=== PATIENT | male | born 1965 | race Caucasian/White ===

== ENCOUNTER 2018-11-24 14:32 | Inpatient (IN) | payer MEDICARE, OTHER ==
[2018-11-24] MEDS ORDERED: LORazepam 2 MG/ML INJ IM STA (15:05)
[2018-11-24] MEDS ORDERED: ZIPRASIDONE 20 MG VIAL IM STA (15:05)
[2018-11-24 17:04] LABS: Appearance,Urine Clear (Clear); Bilirubin,Urine Negative (Negative); Blood,Urine Negative (Negative); Color,Urine Light Yellow; Glucose,Urine (UA) Negative (Negative); Ketones,Urine 1+ (Negative); Leukocyte Esterase,Urine Large (Negative); Mucus,Urine Rare /hpf; Nitrite,Urine Negative (Negative); Protein,Urine Negative (Negative); RBC,Urine 2 /hpf (0-5); Specific Gravity,Urine 1.007 (1.001-1.035); Squamous Epithelial Cell,Urine 1 /hpf (0-4); Urobilinogen,Urine <2.0 mg/dL (<2.0); WBC,Urine 30 /hpf (0-5)
[2018-11-24 17:08] LABS: Amphetamine Screen,Urine Not Detected (NotDetected); Barbiturate Screen,Urine Not Detected (NotDetected); Benzodiazepines Screen,Urine Not Detected (NotDetected); Cocaine Screen,Urine Not Detected (NotDetected); Methadone Screen, Urine Not Detected (NotDetected); Opiate Screen,Urine Not Detected (NotDetected); Oxycodone Screen, Urine Not Detected (NotDetected); Phencyclidine Screen,Urine Not Detected (NotDetected); Tricyclic Antidepressant,Urine Not Detected (NotDetected); Urn Cannabinoid Scrn Detected (NotDetected)
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
[2018-11-24] MEDS ORDERED: MAG HYDROX/AL HYDROX/SIMETH 30 ML CUP PO PRN (20:31)
[2018-11-24] MEDS ORDERED: ZIPRASIDONE 20 MG VIAL IM PRN (20:31)
[2018-11-24] MEDS ORDERED: MAGNESIUM HYDROXIDE 2,400 MG/10 ML CUP PO PRN (20:31)
--- NOTE | 2018-11-25 07:12 | P.MDCNMH ---
History of Present Illness H&P Date: 11/26/18 Chief Complaint: Medical management 53-year-old male with history of bipolar disorder. Patient was brought into the hospital due to abnormal behavior family was brought him in because he was walking into neighbors houses and being very talkative with pressured speech and not sleeping for a few days which is typical of her his cris attacks. Patient denies any chest pain trouble breathing coughing fevers chills nausea vomiting abdominal pain or GI bleeding Review of Systems ( Pertinent positives as noted in HPI. All other systems were reviewed and are negative Past Medical History Additional Past Medical History / Comment(s): chronic back pain History of Any Multi-Drug Resistant Organisms: None Reported Past Surgical History: Hernia Repair Past Psychological History: Bipolar Smoking Status: Current every day smoker Past Alcohol Use History: None Reported Past Drug Use History: Marijuana - Past Family History Family Family Medical History: No Reported History Medications and Allergies Allergies Allergy/AdvReac Type Severity Reaction Status Date / Time No Known Allergies Allergy Verified 11/24/18 20:30 Physical Exam Vitals: Vital Signs Temp Pulse Pulse Resp BP BP Pulse Ox 11/25/18 06:00 97.9 F 90 18 142/84 11/24/18 18:32 73 18 138/88 99 11/24/18 16:38 86 18 120/87 98 11/24/18 14:37 97.8 F 95 18 145/96 97 Constitutional: No acute distress, conversant, pleasant Eyes: Anicteric sclerae, moist conjunctiva, no lid-lag Pupils equal round reactive to light ENMT: NC/AT Oropharynx clear, no erythema, exudates Neck: Supple, FROM, no masses, or JVD No carotid bruits No thyromegaly Lungs: Clear to auscultation Clear to percussion Normal respiratory effort, no accessory muscle use Cardiovascular: Heart regular in rate and rhythm, No murmurs, gallops, or rubs No peripheral edema Abdominal: Soft Nontender, no guarding, rebound or rigidity Abdomen moving with respiration Normoactive bowel sounds No hepatomegaly, No splenomegaly No palpable mass No abdominal wall hernia noted Skin: Normal temperature, tone, texture, turgor No induration No subcutaneous nodules No rash, lesions No ulcers Extremities: No digital cyanosis No clubbing Pedal pulses intact and symmetrical Radial pulses intact and symmetrical No calf tenderness Psychiatric: Alert and oriented to person, place and time Flight of ideas and thoughts patient very talkative Poor judgement Neuro Muscles Strength 5/5 in all 4 extremities Sensation to light touch grossly present throughout Cranial nerves II-XII grossly intact No focal sensory deficits Lymphatics: no palpable cervical or supraclavicular , or inguinal lymph nodes Cranial Nerve Examination - Cranial Nerves Cranial Nerve II- Optic: Intact Cranial Nerve III- Oculomotor: Intact Cranial Nerve IV- Trochlear: Intact Cranial Nerve V- Trigeminal: Intact Cranial Nerve - Abducens: Intact Cranial Nerve VII- Facial: Intact Cranial Nerve VIII- Auditory: Intact Cranial Nerve IX- Glossopharyngeal: Intact Cranial Nerve X- Vagus: Intact Cranial Nerve XI- Accessory: Intact Cranial Nerve XII- Hypoglossal: Intact Results CBC & Chem 7: 11/25/18 08:06 11/25/18 08:06 Labs: Abnormal Lab Results - Last 24 Hours (Table) 11/24/18 Range/Units 16:32 Urine Ketones 1+ H (Negative) Ur Leukocyte Esterase Large H (Negative) Urine WBC 30 H (0-5) /hpf Urine Mucus Rare H (None) /hpf U Marijuana (THC) Screen Detected H (NotDetected) Assessment and Plan Assessment: 53-year-old male with history of bipolar disorder admitted due to possible episode of cris patient becoming talkative with abnormal behavior walking the neighbors houses. Medicine consultation for medical management patient currently have no medical concerns Plan: Bipolar disorder with manic episodes Management per psych Tobacco smoking abuse Patient counseled to quit smoking Dictating replacement therapy Patient low risk for DVT patient is ambulatory Thank you for allowing us to participate in the care of this patient. We will follow peripherally. Do not hesitate to contact us with questions. Someone can be reached from the [facility] [place] [facility] hospitalist group at all hours of the day at [phone].
[2018-11-25 08:49] LABS: Basophils % (A) 0 %; Eosinophils # (A) 0.2 k/uL (0-0.7); Eosinophils % (A) 2 %; HCT 48.4 % (39.0-53.0); HGB 15.7 gm/dL (13.0-17.5); Lymphocytes # (A) 1.5 k/uL (1.0-4.8); Lymphocytes % (A) 13 %; MCH 30.5 pg (25.0-35.0); MCHC 32.3 g/dL (31.0-37.0); MCV 94.4 fL (80.0-100.0); Mean Platelet Volume 6.6; Monocytes # (A) 0.7 k/uL (0-1.0); Monocytes % (A) 6 %; Neutrophils # (A) 9.6 k/uL (1.3-7.7); Neutrophils % (A) 79 %; Platelet Count 395 k/uL (150-450); RBC 5.13 m/uL (4.30-5.90); RDW 13.2 % (11.5-15.5); WBC 12.2 k/uL (3.8-10.6)
[2018-11-25 08:57] LABS: ALT 38 U/L (21-72); AST 54 U/L (17-59); Albumin 4.8 g/dL (3.5-5.0); Alkaline Phosphatase 67 U/L (38-126); Anion Gap 8 mmol/L; Blood Urea Nitrogen 15 mg/dL (9-20); Calcium 10.3 mg/dL (8.4-10.2); Carbon Dioxide 26 mmol/L (22-30); Chloride 106 mmol/L (98-107); Cholesterol 201 mg/dL (<200); Glucose 90 mg/dL (74-99); HDL Cholesterol 71 mg/dL (40-60); LDL Cholesterol,Calculated 120 mg/dL (0-99); Potassium 4.4 mmol/L (3.5-5.1); Sodium 140 mmol/L (137-145); Total Bilirubin 1.5 mg/dL (0.2-1.3); Total Protein 7.3 g/dL (6.3-8.2); Triglycerides 50 mg/dL (<150)
[2018-11-25] MEDS: NICOTINE 7MG/24HR PATCH TRANSDERM SCH (10:20)
--- NOTE | 2018-11-25 12:33 | P.HP ---
Psychiatric H&P - . H&P Date: 11/25/18 History & Physical: Allergies Allergy/AdvReac Type Severity Reaction Status Date / Time No Known Allergies Allergy Verified 11/24/18 20:30 Vital Signs Temp 97.9 F 11/25/18 06:00 Pulse 90 11/25/18 06:00 Resp 18 11/25/18 06:00 BP 142/84 11/25/18 06:00 Pulse Ox 99 11/24/18 18:32 Intake & Output 11/24/18 11/25/18 11/25/18 18:59 06:59 18:59 Weight 58.967 kg Laboratory Last Values WBC 12.2 k/uL (3.8-10.6) H 11/25/18 08:06 RBC 5.13 m/uL (4.30-5.90) 11/25/18 08:06 Hgb 15.7 gm/dL (13.0-17.5) 11/25/18 08:06 Hct 48.4 % (39.0-53.0) 11/25/18 08:06 MCV 94.4 fL (80.0-100.0) 11/25/18 08:06 MCH 30.5 pg (25.0-35.0) 11/25/18 08:06 MCHC 32.3 g/dL (31.0-37.0) 11/25/18 08:06 RDW 13.2 % (11.5-15.5) 11/25/18 08:06 Plt Count 395 k/uL (150-450) 11/25/18 08:06 Neutrophils % 79 % 11/25/18 08:06 Lymphocytes % 13 % 11/25/18 08:06 Monocytes % 6 % 11/25/18 08:06 Eosinophils % 2 % 11/25/18 08:06 Basophils % 0 % 11/25/18 08:06 Neutrophils # 9.6 k/uL (1.3-7.7) H 11/25/18 08:06 Lymphocytes # 1.5 k/uL (1.0-4.8) 11/25/18 08:06 Monocytes # 0.7 k/uL (0-1.0) 11/25/18 08:06 Eosinophils # 0.2 k/uL (0-0.7) 11/25/18 08:06 Basophils # 0.0 k/uL (0-0.2) 11/25/18 08:06 Sodium 140 mmol/L (137-145) 11/25/18 08:06 Potassium 4.4 mmol/L (3.5-5.1) 11/25/18 08:06 Chloride 106 mmol/L (98-107) 11/25/18 08:06 Carbon Dioxide 26 mmol/L (22-30) 11/25/18 08:06 Anion Gap 8 mmol/L 11/25/18 08:06 BUN 15 mg/dL (9-20) 11/25/18 08:06 Creatinine 0.72 mg/dL (0.66-1.25) 11/25/18 08:06 Est GFR (CKD-EPI)AfAm >90 (>60 ml/min/1.73 sqM) 11/25/18 08:06 Est GFR (CKD-EPI)NonAf >90 (>60 ml/min/1.73 sqM) 11/25/18 08:06 Glucose 90 mg/dL (74-99) 11/25/18 08:06 Calcium 10.3 mg/dL (8.4-10.2) H 11/25/18 08:06 Total Bilirubin 1.5 mg/dL (0.2-1.3) H 11/25/18 08:06 AST 54 U/L (17-59) 11/25/18 08:06 ALT 38 U/L (21-72) 11/25/18 08:06 Alkaline Phosphatase 67 U/L (38-126) 11/25/18 08:06 Total Protein 7.3 g/dL (6.3-8.2) 11/25/18 08:06 Albumin 4.8 g/dL (3.5-5.0) 11/25/18 08:06 Triglycerides 50 mg/dL (<150) 11/25/18 08:06 Cholesterol 201 mg/dL (<200) H 11/25/18 08:06 LDL Cholesterol, Calc 120 mg/dL (0-99) H 11/25/18 08:06 HDL Cholesterol 71 mg/dL (40-60) H 11/25/18 08:06 TSH 0.771 mIU/L (0.465-4.680) 11/25/18 08:06 Urine Color Light Yellow 11/24/18 16:32 Urine Appearance Clear (Clear) 11/24/18 16:32 Urine pH 6.0 (5.0-8.0) 11/24/18 16:32 Ur Specific [place] 1.007 (1.001-1.035) 11/24/18 16:32 Urine Protein Negative (Negative) 11/24/18 16:32 Urine Glucose (UA) Negative (Negative) 11/24/18 16:32 Urine Ketones 1+ (Negative) H 11/24/18 16:32 Urine Blood Negative (Negative) 11/24/18 16:32 Urine Nitrite Negative (Negative) 11/24/18 16:32 Urine Bilirubin Negative (Negative) 11/24/18 16:32 Urine Urobilinogen <2.0 mg/dL (<2.0) 11/24/18 16:32 Ur Leukocyte Esterase Large (Negative) H 11/24/18 16:32 Urine RBC 2 /hpf (0-5) 11/24/18 16:32 Urine WBC 30 /hpf (0-5) H 11/24/18 16:32 Ur Squamous Epith Cells 1 /hpf (0-4) 11/24/18 16:32 Urine Mucus Rare /hpf (None) H 11/24/18 16:32 Urine Opiates Screen Not Detected (NotDetected) 11/24/18 16:32 Ur Oxycodone Screen Not Detected (NotDetected) 11/24/18 16:32 Urine Methadone Screen Not Detected (NotDetected) 11/24/18 16:32 Ur Propoxyphene Screen Not Detected (NotDetected) 11/24/18 16:32 Ur Barbiturates Screen Not Detected (NotDetected) 11/24/18 16:32 U Tricyclic Antidepress Not Detected (NotDetected) 11/24/18 16:32 Ur Phencyclidine Scrn Not Detected (NotDetected) 11/24/18 16:32 Ur Amphetamines Screen Not Detected (NotDetected) 11/24/18 16:32 U Methamphetamines Scrn Not Detected (NotDetected) 11/24/18 16:32 U Benzodiazepines Scrn Not Detected (NotDetected) 11/24/18 16:32 Urine Cocaine Screen Not Detected (NotDetected) 11/24/18 16:32 U Marijuana (THC) Screen Detected (NotDetected) H 11/24/18 16:32 11/25/18 09:51 Abnormal Lab Results - Last 24 Hours (Table) 11/24/18 Range/Units 16:32 Urine Ketones 1+ H (Negative) Ur Leukocyte Esterase Large H (Negative) Urine WBC 30 H (0-5) /hpf Urine Mucus Rare H (None) /hpf U Marijuana (THC) Screen Detected H (NotDetected) Assessment and Plan Assessment: 53-year-old male presenting today is brought in by family for rapid speech, lack of sleep, cris. Family states patient has a history of bipolar. They state that he has been up for the past 4 days he has pressured speech and has been speaking very rapidly. They state that they do not feel he is safe and could be harmful to self as he is walking into others homes, attempting to find his grandsons. Family is concerned as symptoms have been worsening and patient has become aggressive. They petitioned patient for psychiatric evaluation. Upon arrival pt has coherent speech, it is NOT word salad but is pressured and rapid. He has blood shot eyes, denies drug use. Pt denies current suicidal thoughts, but states he has thought of them fleeting, no plan. Denies homicidal ideation. Patient denies any recent fever, chills, shortness of breath, chest pain, back pain, abdominal pain, nausea or vomiting, numbness or tingling, dysuria or hematuria, constipation or diarrhea, headaches or visual changes, or any other complaints. Pt was brought in by his family on a petition. Pt has a hx of being bipolar. He has been noncompliant with his medicaions and is currently manic. He has not slept in days and is walking into strangers houses asking where his grandchildren are. Pt is currently resting comfortably in his er room. Family is concerned that he is a harm to self or others. Pt tried to elope. He was agitated on arrival but currently calm and cooperative Past Medical History Additional Past Medical History / Comment(s): chronic back pain History of Any Multi-Drug Resistant Organisms: None Reported Past Surgical History: Hernia Repair Past Psychological History: Bipolar Smoking Status: Current every day smoker Past Alcohol Use History: None Reported Past Drug Use History: Marijuana Musculoskeletal Examination - Abnormal/Involuntary Movements: [none Strength: [greater than antigravity (greater than/equal to 3/5) in all extremities] Muscle Tone: [no impairment Gait: [grossly normal Station: [grossly normal Mental Status Examination - General Appearance: [well groomed, casual, bizarre, appears stated age Speech/Language: [spontaneous, rapid, expressive, loud] Attitude/Behavior: [cooperative, irritable, ] Mood: [euthymic, euphoric, elated, Affect: [full range, lively, labile Orientation: [time, person, place situation] Thought Content: [wnl Risk Factors: [denies suicidal (ideations, plan), and/or Homicidal (ideations, plan), other] Perception: [wnl, denies hallucinations (auditory, visual, tactile), other] Thought Processes: [goal-oriented Concentration/Attention Span: [wnl] [Per observation and interview with the patient] Recent Memory: [wnl 3 out of 3 in 3 minutes] Remote Memory: [wnl] [past events, as related history] Intelligence: [ average] [based on history, based on vocabulary, syntax, grammar, and content] Judgement: [good] [per patient's behavior/history of present illness] Insight: [good] [understanding severity of illness/history of present illness] Admitting Diagnosis: [History of bipolar] Patient Strengths - Steady employment/financial stability: [x] Housing stability: [x] Able to vocalize needs: [x] Values and traditions: [x] Motivation, determination, readiness for change: [x] Patient Limitations: [medication Initial Plan of Care: ['s minute on a formal voluntary human though his sister petitioned him he is not a harm to himself or others he just has rapid speech. He is going to be evaluated by medicine, psychiatry, nursing staff, social work and occupational therapy for thorough biopsychosocial evaluation and disposition with the discharge plan. Other than rapid speech I do not see a need at this time to medicate. I will meet with treatment team tomorrow and will check with social work today the significant range for a family meeting tomorrow.] Estimated Length of Stay: [5 days] Initial Discharge Plan: [[place], [facility] Prognosis: [good] Justification for Inpatient Hospitalization - [Emotional or behavioral conditions and complications requiring 24 hour medical and nursing care.] [Need for special drug therapy, or other therapeutic program requiring continuous hospitalization.] [Failure of social or occupational functioning.] (1) Acute psychosis Current Visit: Yes Status: Acute Priority: Medium Code(s): F23 - BRIEF PSYCHOTIC DISORDER SNOMED Code(s): 79364514 (2) Bipolar disorder Current Visit: Yes Status: Acute Priority: Medium Code(s): F31.9 - BIPOLAR DISORDER, UNSPECIFIED SNOMED Code(s): 87169749 Time with Patient: Less than 30
[2018-11-25] MEDS: ZIPRASIDONE 20 MG VIAL IM PRN (13:11)
[2018-11-25 19:40] LABS: Hemoglobin A1C 5.4 % (4.0-6.0)
[2018-11-25] MEDS: ACETAMINOPHEN TAB 325 MG TAB PO PRN (20:53)
[2018-11-25] MEDS: LORazepam 1 MG TAB PO PRN (22:01)
[2018-11-26] MEDS: ACETAMINOPHEN TAB 325 MG TAB PO PRN ×3 (04:56→20:08)
[2018-11-26] MEDS: ZIPRASIDONE 20 MG VIAL IM PRN (06:41)
--- NOTE | 2018-11-26 07:48 | XR ---
Left shoulder HISTORY: Trauma and pain 2 views of the left shoulder Bone mineralization, joint spaces and alignment are maintained. Left lung apex as visualized is beatriz l. IMPRESSION: No fracture or dislocation.
[2018-11-26] MEDS: NICOTINE 7MG/24HR PATCH TRANSDERM SCH (10:15)
--- NOTE | 2018-11-26 14:39 | P.PN ---
Subjective Progress Note Date: 11/26/18 Principal diagnosis: Bipolar mixed 11/26/2018: Chart reviewed and discussed in team this morning discussed with nursing staff and social work. Attempted to call his sister but no answer. Patient apologized for yesterday was be here and appears to be more appropriate. Awaiting deferral hearing before treatment since he still aggravated at times. Objective - Vital Signs Vital signs: Vital Signs Temp 97.6 F 11/26/18 04:40 Pulse 84 11/26/18 04:40 Resp 18 11/26/18 04:40 BP 121/83 11/26/18 04:40 Pulse Ox 99 11/24/18 18:32 - Labs CBC & Chem 7: 11/25/18 08:06 11/25/18 08:06 Assessment and Plan Assessment: 53-year-old male presenting today is brought in by family for rapid speech, lack of sleep, cris. Family states patient has a history of bipolar. They state that he has been up for the past 4 days he has pressured speech and has been speaking very rapidly. They state that they do not feel he is safe and could be harmful to self as he is walking into others homes, attempting to find his grandsons. Family is concerned as symptoms have been worsening and patient has become aggressive. They petitioned patient for psychiatric evaluation. Upon arrival pt has coherent speech, it is NOT word salad but is pressured and rapid. He has blood shot eyes, denies drug use. Pt denies current suicidal thoughts, but states he has thought of them fleeting, no plan. Denies homicidal ideation. Patient denies any recent fever, chills, shortness of breath, chest pain, back pain, abdominal pain, nausea or vomiting, numbness or tingling, dysuria or hematuria, constipation or diarrhea, headaches or visual changes, or any other complaints. Pt was brought in by his family on a petition. Pt has a hx of being bipolar. He has been noncompliant with his medicaions and is currently manic. He has not slept in days and is walking into strangers houses asking where his grandchildren are. Pt is currently resting comfortably in his er room. Family is concerned that he is a harm to self or others. Pt tried to elope. He was agitated on arrival but currently calm and cooperative Past Medical History Additional Past Medical History / Comment(s): chronic back pain History of Any Multi-Drug Resistant Organisms: None Reported Past Surgical History: Hernia Repair Past Psychological History: Bipolar Smoking Status: Current every day smoker Past Alcohol Use History: None Reported Past Drug Use History: Marijuana Musculoskeletal Examination - Abnormal/Involuntary Movements: [none Strength: [greater than antigravity (greater than/equal to 3/5) in all extremities] Muscle Tone: [no impairment Gait: [grossly normal Station: [grossly normal Mental Status Examination - General Appearance: [well groomed, casual, bizarre, appears stated age Speech/Language: [spontaneous, rapid, expressive, loud] Attitude/Behavior: [cooperative, irritable, ] Mood: [euthymic, euphoric, elated, Affect: [full range, lively, labile Orientation: [time, person, place situation] Thought Content: [wnl Risk Factors: [denies suicidal (ideations, plan), and/or Homicidal (ideations, plan), other] Perception: [wnl, denies hallucinations (auditory, visual, tactile), other] Thought Processes: [goal-oriented Concentration/Attention Span: [wnl] [Per observation and interview with the patient] Recent Memory: [wnl 3 out of 3 in 3 minutes] Remote Memory: [wnl] [past events, as related history] Intelligence: [ average] [based on history, based on vocabulary, syntax, gramm ar, and content] Judgement: [good] [per patient's behavior/history of present illness] Insight: [good] [understanding severity of illness/history of present illness] Admitting Diagnosis: [History of bipolar] Patient Strengths - Steady employment/financial stability: [x] Housing stability: [x] Able to vocalize needs: [x] Values and traditions: [x] Motivation, determination, readiness for change: [x] Patient Limitations: [medication Initial Plan of Care: ['s minute on a formal voluntary human though his sister petitioned him he is not a harm to himself or others he just has rapid speech. He is going to be evaluated by medicine, psychiatry, nursing staff, social work and occupational therapy for thorough biopsychosocial evaluation and disposition with the discharge plan. Other than rapid speech I do not see a need at this time to medicate. I will meet with treatment team tomorrow and will check with social work today the significant range for a family meeting tomorrow. 11/26/2018: Patient has had several outbursts requiring Geodon 20 mg injectable for outburst of anger. He remains on 15 minute checks. He has little insight into why he needs care. We'll await court deferral hearing before discussing further treatment with him since he is non-resistant to care.] (1) Acute psychosis Current Visit: Yes Status: Acute Priority: Medium Code(s): F23 - BRIEF PSYCHOTIC DISORDER SNOMED Code(s): 89513113 (2) Bipolar disorder Current Visit: Yes Status: Acute Priority: Medium Code(s): F31.9 - BIPOLAR DISORDER, UNSPECIFIED SNOMED Code(s): 18974830 Time with Patient: Less than 30
[2018-11-26] MEDS ORDERED: PALIPERIDONE 3 MG TAB.ER.24 PO SCH (21:00)
[2018-11-26] MEDS: LORazepam 1 MG TAB PO PRN (21:05)
[2018-11-26] MEDS: DIVALPROEX SPRINKLE 125 MG CAP.SPRINK PO SCH (21:05)
[2018-11-26] MEDS ORDERED: NAPROXEN 250 MG TAB PO STA (22:41)
[2018-11-27] MEDS ORDERED: ACETAMINOPHEN TAB 325 MG TAB ONE (04:42)
[2018-11-27] MEDS ORDERED: NAPROXEN 250 MG TAB PO ONE (05:00)
[2018-11-27] MEDS: DIVALPROEX SPRINKLE 125 MG CAP.SPRINK PO SCH (08:41)
[2018-11-27] MEDS: NICOTINE 7MG/24HR PATCH TRANSDERM SCH ×2 (08:42→16:12)
--- NOTE | 2018-11-27 11:19 | P.PN ---
Subjective Progress Note Date: 11/27/18 Principal diagnosis: Bipolar mixed 11/26/2018: Chart reviewed and discussed in team this morning discussed with nursing staff and social work. Attempted to call his sister but no answer. Patient apologized for yesterday was be here and appears to be more appropriate. Awaiting deferral hearing before treatment since he still aggravated at times. 11/27/2018: Chart reviewed and discussed in team this morning regarding deferral and discharge. Attempted to call his sister yesterday but no answer. Patient apologized in this morning for his past behavior and discussed his behavior and discharge plans if he continues to be appropriate and well reevaluate in the morning. He will have his probate Court deferral today and explained in detail that he'll have to continue his medications and do outpatient therapy. Objective - Vital Signs Vital signs: Vital Signs Temp 97.6 F 11/27/18 03:25 Pulse 85 11/27/18 03:25 Resp 15 11/27/18 03:25 BP 162/88 11/27/18 03:25 Pulse Ox 99 11/24/18 18:32 - Labs CBC & Chem 7: 11/25/18 08:06 11/25/18 08:06 Assessment and Plan Assessment: 53-year-old male presenting today is brought in by family for rapid speech, lack of sleep, cris. Family states patient has a history of bipolar. They state that he has been up for the past 4 days he has pressured speech and has been speaking very rapidly. They state that they do not feel he is safe and could be harmful to self as he is walking into others homes, attempting to find his grandsons. Family is concerned as symptoms have been worsening and patient has become aggressive. They petitioned patient for psychiatric evaluation. Upon arrival pt has coherent speech, it is NOT word salad but is pressured and rapid. He has blood shot eyes, denies drug use. Pt denies current suicidal thoughts, but states he has thought of them fleeting, no plan. Denies homicidal ideation. Patient denies any recent fever, chills, shortness of breath, chest pain, back pain, abdominal pain, nausea or vomiting, numbness or tingling, dysuria or hematuria, constipation or diarrhea, headaches or visual changes, or any other complaints. Pt was brought in by his family on a petition. Pt has a hx of being bipolar. He has been noncompliant with his medicaions and is currently manic. He has not slept in days and is walking into strangers houses asking where his grandchildren are. Pt is currently resting comfortably in his er room. Family is concerned that he is a harm to self or others. Pt tried to elope. He was agitated on arrival but currently calm and cooperative Past Medical History Additional Past Medical History / Comment(s): chronic back pain History of Any Multi-Drug Resistant Organisms: None Reported Past Surgical History: Hernia Repair Past Psychological History: Bipolar Smoking Status: Current every day smoker Past Alcohol Use History: None Reported Past Drug Use History: Marijuana Musculoskeletal Examination - Abnormal/Involuntary Movements: [none Strength: [greater than antigravity (greater than/equal to 3/5) in all extremities] Muscle Tone: [no impairment Gait: [grossly normal Station: [grossly normal Mental Status Examination - General Appearance: [well groomed, casual, bizarre, appears stated age Speech/Language: [spontaneous, rapid, expressive, loud] Attitude/Behavior: [cooperative, irritable, ] Mood: [euthymic, euphoric, elated, Affect: [full range, lively, labile Orientation: [time, person, place situation] Thought Content: [wnl Risk Factors: [denies suicidal (ideations, plan), and/or Homicidal (ideations, plan), other] Perception: [wnl, denies hallucinations (auditory, visual, tactile), other] Thought Processes: [goal-oriented Concentration/Attention Span: [wnl] [Per observation and interview with the patient] Recent Memory: [wnl 3 out of 3 in 3 minutes] Remote Memory: [wnl] [past events, as related history] Intelligence: [ average] [based on history, based on vocabulary, syntax, grammar, and content] Judgement: [good] [per patient's behavior/history of present illness] Insight: [good] [understanding severity of illness/history of present illness] Admitting Diagnosis: [History of bipolar] Patient Strengths - Steady employment/financial stability: [x] Housing stability: [x] Able to vocalize needs: [x] Values and traditions: [x] Motivation, determination, readiness for change: [x] Patient Limitations: [medication Initial Plan of Care: ['s minute on a formal voluntary human though his sister petitioned him he is not a harm to himself or others he just has rapid speech. He is going to be evaluated by medicine, psychiatry, nursing staff, social work and occupational therapy for thorough biopsychosocial evaluation and disposition with the discharge plan. Other than rapid speech I do not see a need at this time to medicate. I will meet with treatment team tomorrow and will check with social work today the significant range for a family meeting tomorrow. 11/26/2018: Patient has had several outbursts requiring Geodon 20 mg injectable for outburst of anger. He remains on 15 minute checks. He has little insight into why he needs care. We'll await court deferral hearing before discussing fu rther treatment with him since he is non-resistant to care. 11/27/2018: No noticeable outburst today and has been taking his Invega and Depakote as indicated. He remains on 15 minute checks. He has little insight again into why he needs psychiatric care. To this play writer states he is willing to take medications and has been reported and other group situations that he's not going to take this poison and he is going to fall court hearing. Today he stated that his then attended the medications and sounded defer also get out of the hospital. His current medications include Invega 6 mg and Depakote 500 mg extended release both given at bedtime. We'll follow observed for further evaluation and need for further medication.] (1) Acute psychosis Current Visit: Yes Status: Acute Priority: Medium Code(s): F23 - BRIEF PSYCHOTIC DISORDER SNOMED Code(s): 48625543 (2) Bipolar disorder Current Visit: Yes Status: Acute Priority: Medium Code(s): F31.9 - BIPOLAR DISORDER, UNSPECIFIED SNOMED Code(s): 16655725 Time with Patient: Less than 30
[2018-11-27] MEDS: LORazepam 1 MG TAB PO PRN ×2 (11:40→21:22)
[2018-11-27] MEDS ORDERED: DIVALPROEX ER 500 MG TAB.ER.24H PO SCH (21:00)
[2018-11-27] MEDS ORDERED: PALIPERIDONE 6 MG TAB.ER.24 PO SCH (21:00)
[2018-11-28] MEDS: LORazepam 1 MG TAB PO PRN (04:49)
[2018-11-28] MEDS: NICOTINE 7MG/24HR PATCH TRANSDERM SCH (08:19)
[2018-11-28] MEDS: ZIPRASIDONE 20 MG VIAL IM PRN (11:38)
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
[2018-11-28] MEDS: ACETAMINOPHEN TAB 325 MG TAB PO PRN (17:36)
[2018-11-28] MEDS: PALIPERIDONE 3 MG TAB.ER.24 PO SCH (20:52)
[2018-11-28] MEDS ORDERED: DIVALPROEX ER 250 MG TAB.ER.24H PO SCH (21:00)
[2018-11-29] MEDS: LORazepam 1 MG TAB PO PRN (00:58)
[2018-11-29 02:40] VITALS: RESP 16
[2018-11-29] MEDS: ACETAMINOPHEN TAB 325 MG TAB PO PRN ×4 (05:52→20:54)
[2018-11-29] MEDS: NICOTINE 7MG/24HR PATCH TRANSDERM SCH (09:38)
[2018-11-29] MEDS ORDERED: PALIPERIDONE IM 234 MG/1.5 ML SYG IM STA (11:13)
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
[2018-11-29] MEDS: DIVALPROEX ER 500 MG TAB.ER.24H PO SCH (20:52)
[2018-11-29] MEDS: PALIPERIDONE 3 MG TAB.ER.24 PO SCH (20:52)
--- NOTE | 2018-11-29 22:34 | XR ---
EXAM: XR Left Foot Complete, 3 or More Views CLINICAL HISTORY: pain overlying the 3rd metatarsal TECHNIQUE: Frontal, lateral and oblique views of the left foot. COMPARISON: No relevant prior studies available. FINDINGS: Bones/joints: No acute fracture or malalignment. Soft tissues: Unremarkable. No radiopaque foreign body. IMPRESSION: No acute osseous abnormality.
[2018-11-30] MEDS: ACETAMINOPHEN TAB 325 MG TAB PO PRN ×6 (00:57→23:27)
[2018-11-30] MEDS: NICOTINE 7MG/24HR PATCH TRANSDERM SCH (09:17)
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
[2018-11-30] MEDS: PALIPERIDONE 3 MG TAB.ER.24 PO SCH (20:17)
[2018-11-30] MEDS: DIVALPROEX ER 500 MG TAB.ER.24H PO SCH (20:17)
[2018-11-30] MEDS: LORazepam 1 MG TAB PO PRN (23:26)
[2018-12-01] MEDS: ACETAMINOPHEN TAB 325 MG TAB PO PRN ×4 (04:03→21:29)
[2018-12-01] MEDS: NICOTINE 7MG/24HR PATCH TRANSDERM SCH (08:32)
--- NOTE | 2018-12-01 09:09 | P.PN ---
Progress Note - Text Interval history: The patient is found in the hallway he follows me to an interview room. He reports his mood is good. He feels that he is stabilizing. He is looking forward to his support meeting involving his son this morning. He reports some difficulty sleeping last night but states again it was due to disturbance is caused by other patients. He states he did sleep during the day and estimates he slept approximately 6-7 hours overall. Appetite stable. He endorses no racing thoughts. Mental status exam: The patient's a thin male appearing his stated age. He is dressed in his own clothing hygiene and grooming are adequate. Eye contact is appropriate. He has a bright smiling affect. Speech is fluent spontaneous nonpressured. He demonstrates no objective evidence of hypomania or cris during our interaction. He reports no suicidal or homicidal ideation intent or plan. He is reporting no auditory or visual hallucinations or any specific delusions. He is demonstrating no objective evidence of psychosis during our interaction. Insight and judgment are improving. He is oriented to person place and date. He demonstrates no verbal or physical aggressiveness. He demonstrates no involuntary repetitive movements. Plan: The patient will continue on his current psychotropic medications. We will await the outcome of the support meeting. He appears to be clinically stabilizing. We will continue to monitor for safety.
[2018-12-01] MEDS: DIVALPROEX ER 500 MG TAB.ER.24H PO SCH (20:11)
[2018-12-01] MEDS: PALIPERIDONE 3 MG TAB.ER.24 PO SCH (20:12)
[2018-12-01] MEDS: LORazepam 1 MG TAB PO PRN (21:30)
[2018-12-02] MEDS: ACETAMINOPHEN TAB 325 MG TAB PO PRN (03:55)
[2018-12-02 04:26] VITALS: BP 144/85; PULSE 91; TEMP 97.8
[2018-12-02] MEDS: NICOTINE 7MG/24HR PATCH TRANSDERM SCH (08:18)
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
== END 2018-12-02 11:45 | disposition home or self-care (01) | DRG 885 ==
LOC: EC 14:32 → 3MHU 20:25
PROVIDERS: ADMIT Psychiatry & Neurology Psychiatry; ATTEND Psychiatry & Neurology Psychiatry
DX: F31.2 Bipolar disorder, current episode manic severe with psychotic features (principal); Z71.6 Tobacco abuse counseling; F17.210 Nicotine dependence, cigarettes, uncomplicated; Z72.820 Sleep deprivation; Z78.1 Physical restraint status; Z79.899 Other long term (current) drug therapy; T43.96XA Underdosing of unspecified psychotropic drug, initial encounter; Z91.128 Patient's intentional underdosing of medication regimen for other reason; M54.9 Dorsalgia, unspecified; G89.29 Other chronic pain
CPT/HCPCS: 80053; 80061; 80306; 81001; 83036; 84443; 85025; 96372; 99285

== ENCOUNTER 2019-11-10 10:24 | Inpatient (IN) | payer MEDICARE, OTHER ==
[2019-11-10] MEDS ORDERED: HYDROmorphone 0.5 MG/0.5 ML SYRINGE IM STA (10:36)
[2019-11-10] MEDS ORDERED: DIPH,PERTUS(ACELL)TETVAC-LF 0.5 ML VIAL IM ONE (10:36)
[2019-11-10 10:48] LABS: Basophils # (A) 0.1 k/uL (0-0.2); Basophils % (A) 0 %; Eosinophils # (A) 0.3 k/uL (0-0.7); Eosinophils % (A) 2 %; HCT 49.4 % (39.0-53.0); HGB 16.8 gm/dL (13.0-17.5); Lymphocytes # (A) 1.1 k/uL (1.0-4.8); Lymphocytes % (A) 6 %; MCH 31.9 pg (25.0-35.0); MCV 93.8 fL (80.0-100.0); Mean Platelet Volume 6.7; Monocytes # (A) 0.7 k/uL (0-1.0); Monocytes % (A) 3 %; Neutrophils # (A) 17.8 k/uL (1.3-7.7); Neutrophils % (A) 89 %; Platelet Count 368 k/uL (150-450); RBC 5.26 m/uL (4.30-5.90); RDW 12.7 % (11.5-15.5); WBC 20.1 k/uL (3.8-10.6)
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
[2019-11-10 10:56] LABS: INR 0.9 (<1.2); Partial Thromboplastin Time 22.3 sec (22.0-30.0); Prothrombin Time 9.7 sec (9.0-12.0)
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
[2019-11-10 10:58] LABS: ALT 28 U/L (4-49); AST 32 U/L (17-59); African American GFR (CKD) >90 (>60 ml/min/1.73 sqM); Albumin 4.8 g/dL (3.5-5.0); Alcohol <10 mg/dL; Alkaline Phosphatase 62 U/L (38-126); Amylase 57 U/L (30-110); Anion Gap 7 mmol/L; Blood Urea Nitrogen 28 mg/dL (9-20); Calcium 9.6 mg/dL (8.4-10.2); Carbon Dioxide 30 mmol/L (22-30); Chloride 99 mmol/L (98-107); Glucose 120 mg/dL (74-99); Non-African American GFR(CKD) >90 (>60 ml/min/1.73 sqM); Potassium 4.2 mmol/L (3.5-5.1); Sodium 136 mmol/L (137-145); Total Protein 7.7 g/dL (6.3-8.2)
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
[2019-11-10 11:05] LABS: Creatine Kinase 161 U/L (55-170)
[2019-11-10 11:18] LABS: Creatine Kinase MB 2.2 ng/mL (0.0-2.4); Troponin I <0.012 ng/mL (0.000-0.034)
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
[2019-11-10 12:15] LABS: Appearance,Urine Clear (Clear); Bilirubin,Urine Negative (Negative); Blood,Urine Negative (Negative); Color,Urine Yellow; Glucose,Urine (UA) 2+ (Negative); Ketones,Urine Negative (Negative); Leukocyte Esterase,Urine Negative (Negative); Nitrite,Urine Negative (Negative); PH, Urine 5.5 (5.0-8.0); Protein,Urine Trace (Negative); Urobilinogen,Urine <2.0 mg/dL (<2.0)
[2019-11-10] MEDS ORDERED: IBUPROFEN 400 MG TAB PO PRN (12:31)
[2019-11-10] MEDS ORDERED: ACETAMINOPHEN TAB 325 MG TAB PO PRN (12:31)
[2019-11-10] MEDS ORDERED: NALOXONE 0.4 MG/ML 1 ML VIAL IV PRN (12:31)
[2019-11-10 12:37] LABS: Amphetamine Screen,Urine Not Detected (NotDetected); Barbiturate Screen,Urine Not Detected (NotDetected); Benzodiazepines Screen,Urine Not Detected (NotDetected); Cocaine Screen,Urine Not Detected (NotDetected); Methadone Screen, Urine Not Detected (NotDetected); Opiate Screen,Urine Not Detected (NotDetected); Oxycodone Screen, Urine Not Detected (NotDetected); Phencyclidine Screen,Urine Not Detected (NotDetected); Tricyclic Antidepressant,Urine Detected (NotDetected); Urn Cannabinoid Scrn Not Detected (NotDetected)
[2019-11-10 12:46] LABS: Specific Gravity,Urine 1.049 (1.001-1.035)
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
[2019-11-10] MEDS: HYDROmorphone 0.5 MG/0.5 ML SYRINGE IVP PRN ×2 (15:09→20:14)
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
[2019-11-10] MEDS: ENOXAPARIN 40 MG/0.4 ML SYRINGE SQ SCH (23:12)
[2019-11-10] MEDS: NICOTINE 14MG/24HR PATCH TRANSDERM SCH (23:12)
[2019-11-11] MEDS: HYDROmorphone 0.5 MG/0.5 ML SYRINGE IVP PRN ×3 (08:57→16:57)
[2019-11-11] MEDS: ENOXAPARIN 40 MG/0.4 ML SYRINGE SQ SCH (08:58)
[2019-11-11] MEDS: NICOTINE 14MG/24HR PATCH TRANSDERM SCH (09:06)
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
[2019-11-11 11:37] VITALS: BMI 18.6
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
[2019-11-11] MEDS: ALPRAZolam 0.25 MG TAB PO PRN (19:55)
[2019-11-11] MEDS: FAMOTIDINE 20 MG TAB PO SCH (19:55)
[2019-11-11] MEDS: BACITRACIN 500 UNIT/GM OINT 28.4 GM TUBE TOPICAL SCH (19:56)
[2019-11-11] MEDS: NAPROXEN 250 MG TAB PO SCH (21:53)
[2019-11-12] MEDS: ALPRAZolam 0.25 MG TAB PO PRN (05:32)
[2019-11-12] MEDS: NICOTINE 14MG/24HR PATCH TRANSDERM SCH (07:04)
[2019-11-12] MEDS: NAPROXEN 250 MG TAB PO SCH ×2 (07:31→16:03)
[2019-11-12] MEDS: ENOXAPARIN 40 MG/0.4 ML SYRINGE SQ SCH (07:31)
[2019-11-12] MEDS: CEPHALEXIN 500 MG CAP PO SCH ×2 (07:32→16:03)
[2019-11-12] MEDS: FAMOTIDINE 20 MG TAB PO SCH (07:32)
[2019-11-12] MEDS: BACITRACIN 500 UNIT/GM OINT 28.4 GM TUBE TOPICAL SCH (07:33)
[2019-11-12 07:59] LABS: Basophils % (A) 1 %; Eosinophils # (A) 0.2 k/uL (0-0.7); Eosinophils % (A) 3 %; HCT 38.9 % (39.0-53.0); Lymphocytes # (A) 0.6 k/uL (1.0-4.8); Lymphocytes % (A) 10 %; MCH 32.6 pg (25.0-35.0); MCHC 34.6 g/dL (31.0-37.0); MCV 94.2 fL (80.0-100.0); Mean Platelet Volume 6.9; Monocytes # (A) 0.3 k/uL (0-1.0); Monocytes % (A) 6 %; Neutrophils # (A) 4.5 k/uL (1.3-7.7); Neutrophils % (A) 80 %; Platelet Count 200 k/uL (150-450); RBC 4.12 m/uL (4.30-5.90); RDW 12.9 % (11.5-15.5); WBC 5.6 k/uL (3.8-10.6)
[2019-11-12 08:02] LABS: HGB 13.5 gm/dL (13.0-17.5)
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
[2019-11-12 14:33] VITALS: BP 108/64; PULSE 74; RESP 15; TEMP 98.6
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
== END 2019-11-12 18:15 | DRG 885 ==
LOC: EC 10:24 → 4SSUR 12:31 → OBSVTOIN 11-11 13:32
PROVIDERS: ADMIT Surgery; ATTEND Surgery
PROC: 3E0234Z Introduction of Serum, Toxoid and Vaccine into Muscle, Percutaneous Approach (ICD-10-PCS; 2019-11-10)
PROC: 0HQ1XZZ Repair Face Skin, External Approach (ICD-10-PCS; principal; 2019-11-11)
DX: F31.4 Bipolar disorder, current episode depressed, severe, without psychotic features (principal); Z68.1 Body mass index [BMI] 19.9 or less, adult; Z11.59 Encounter for screening for other viral diseases; S01.81XA Laceration without foreign body of other part of head, initial encounter; F17.210 Nicotine dependence, cigarettes, uncomplicated; F12.90 Cannabis use, unspecified, uncomplicated; D72.829 Elevated white blood cell count, unspecified; R51 Headache; M79.671 Pain in right foot; M79.672 Pain in left foot; M25.552 Pain in left hip; G89.29 Other chronic pain; M54.9 Dorsalgia, unspecified; S20.311A Abrasion of right front wall of thorax, initial encounter; S50.311A Abrasion of right elbow, initial encounter; S90.415A Abrasion, left lesser toe(s), initial encounter; S90.414A Abrasion, right lesser toe(s), initial encounter; G47.00 Insomnia, unspecified; F41.9 Anxiety disorder, unspecified; R63.6 Underweight; R07.89 Other chest pain; T14.8XXA Other injury of unspecified body region, initial encounter; V04.10XA Pedestrian on foot injured in collision with heavy transport vehicle or bus in traffic accident, initial encounter; Y92.410 Unspecified street and highway as the place of occurrence of the external cause; Z23 Encounter for immunization; Z71.3 Dietary counseling and surveillance; Z98.890 Other specified postprocedural states; Z79.1 Long term (current) use of non-steroidal anti-inflammatories (NSAID)
CPT/HCPCS: 12011; 36415; 70450; 70498; 71045; 71260; 72125; 72170; 73502; 74177; 80053; 80306; 80320; 81003; 82150; 82550; 82553; 83605; 83690; 84484; 85025; 85610; 85730; 86850; 86900; 86901; 87635; 90471; 90715; 93005; 96365; 96375; 99291

== ENCOUNTER 2019-11-12 17:34 | Inpatient (IN) | payer MEDICAID, MEDICARE, OTHER ==
[2019-11-12] MEDS ORDERED: MAGNESIUM HYDROXIDE 2,400 MG/10 ML CUP PO PRN (18:27)
[2019-11-12] MEDS ORDERED: ZIPRASIDONE 20 MG VIAL IM PRN (18:27)
[2019-11-12] MEDS ORDERED: MAG HYDROX/AL HYDROX/SIMETH 30 ML CUP PO PRN (18:27)
[2019-11-12] MEDS: FAMOTIDINE 20 MG TAB PO SCH (21:56)
[2019-11-12] MEDS: MELATONIN 5 MG TABLET PO SCH (21:56)
[2019-11-13 07:39] LABS: ALT 29 U/L (4-49); AST 51 U/L (17-59); African American GFR (CKD) >90 (>60 ml/min/1.73 sqM); Albumin 4.1 g/dL (3.5-5.0); Alkaline Phosphatase 55 U/L (38-126); Anion Gap 4 mmol/L; Blood Urea Nitrogen 25 mg/dL (9-20); Calcium 9.1 mg/dL (8.4-10.2); Carbon Dioxide 31 mmol/L (22-30); Chloride 101 mmol/L (98-107); Glucose 104 mg/dL (74-99); Non-African American GFR(CKD) >90 (>60 ml/min/1.73 sqM); Potassium 4.6 mmol/L (3.5-5.1); Sodium 136 mmol/L (137-145); Total Bilirubin 0.8 mg/dL (0.2-1.3); Total Protein 6.8 g/dL (6.3-8.2)
[2019-11-13] MEDS ORDERED: QUEtiapine 25 MG TAB PO PRN (09:58)
[2019-11-13] MEDS: NICOTINE 14MG/24HR PATCH TRANSDERM SCH (10:02)
[2019-11-13] MEDS: LORazepam 1 MG TAB PO PRN ×2 (10:03→21:40)
[2019-11-13] MEDS: FAMOTIDINE 20 MG TAB PO SCH ×2 (10:03→20:29)
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
[2019-11-13] MEDS: QUEtiapine 50 MG TAB PO SCH (20:28)
[2019-11-13] MEDS: MELATONIN 5 MG TABLET PO SCH (20:28)
[2019-11-13] MEDS: MIRTAZAPINE 15 MG TAB PO SCH (20:28)
[2019-11-14] MEDS: FAMOTIDINE 20 MG TAB PO SCH ×2 (08:03→20:33)
[2019-11-14] MEDS: NICOTINE 14MG/24HR PATCH TRANSDERM SCH (08:03)
--- NOTE | 2019-11-14 13:28 | P.PN ---
Subjective Progress Note Date: 11/14/19 Principal diagnosis: Suicide attempt, cannabis withdrawal, cannabis use disorder severe, bipolar disorder most recent episode depressed, rule out major depressive disorder severe without psychotic features, rule out shamanic brain injury, laceration to his scalp, chronic back pain I reviewed the medical record, interviewed the patient and discuss his treatment and treatment plan during team meeting. He was able to sleep last night with the combination of 50 mg of Seroquel at 50 mg and mirtazapine. He complained of morning sedation. We discussed treatment options and agreed to continue with current plan at least through the weekend. He continues to feel depressed and anxious. He has difficulty concentrating and attending and has been avoiding attending therapeutic groups and activities. His appetite remains poor but he has "force" himself to eat meals. He feels weak and is easily fatigued. He denied current thoughts of suicide but expressed continued feelings of hopelessness, helplessness and worthlessness. He relates preoccupied about his multiple psychosocial issues including lack of income, chronic back pain and his reliance on family and friends for housing. Objective - Vital Signs Vital signs: Vital Signs Temp 98.2 F 11/14/19 06:10 Pulse 72 11/14/19 06:10 Resp 17 11/14/19 06:10 BP 132/67 11/14/19 06:10 Pulse Ox 99 11/14/19 06:10 - Exam He presented as a thin and disheveled appearing 54-year-old male with a large laceration on his christianity. He made eye contact and appeared to attend to the interview. He had a distressed facial expression. He showed psychomotor retardation and no abnormal movements. Her speech was spontaneous and decreased rate, rhythm and volume. His affect was depressed, intense and not reactive. He did not express suicidal ideation or wishes. He described continued feelings of hopelessness, helplessness and worthlessness. He did not express ideas reference, paranoid ideation or delusions. His thinking was concrete but his associations were coherent and logical. He denied hallucinations and did not appear to be responding to internal stimuli. - Labs CBC & Chem 7: 11/13/19 07:05 Assessment and Plan Assessment: He remains seriously depressed but is denying current suicidal thoughts and wishes. He continues to remain at risk for self harm due to the severity of depression and multiple physical and psychosocial programs. Plan: Continue inpatient treatment. Safety precautions. Continue mirtazapine 15 mg at bedtime and Seroquel 50 mg at bedtime and Seroquel 25 mg by mouth 3 times a day when necessary for anxiety. Continue Ativan and Geodon for agitation or aggression. Encouraged continued participation in therapeutic groups and activities. Evaluate clinical status response to treatment on a daily basis.
[2019-11-14] MEDS: MIRTAZAPINE 15 MG TAB PO SCH (20:33)
[2019-11-14] MEDS: MELATONIN 5 MG TABLET PO SCH (20:33)
[2019-11-14] MEDS: QUEtiapine 50 MG TAB PO SCH (20:33)
[2019-11-15] MEDS: NICOTINE 14MG/24HR PATCH TRANSDERM SCH (09:01)
[2019-11-15] MEDS: FAMOTIDINE 20 MG TAB PO SCH ×2 (09:02→20:27)
--- NOTE | 2019-11-15 13:58 | P.PN ---
Progress Note - Text Progress Note Date: 11/15/19 Interval history: Patient seen in [facility] today. He says he didn't sleep at all last night. He's had difficulty sleeping at all over the last month. He states over the time correlation between when he stopped using marijuana and when he started having trouble with sleep. Regarding any medication side effects he does describe some dizziness when he gets up quickly. Mental status exam: He is alert and cooperative with the interview. Speech is fluent, not rapid or pressured. Thought processes are organized. His mood he describes is depressed. He denies any thoughts of harm to self or others. No evidence of psychosis or agitation. Plan: Patient be maintained on current psychotropic medication regimen. We'll continue to monitor for medication side effects and monitor how he does with sleep. He is currently on melatonin, Remeron and Seroquel at bedtime.
[2019-11-15] MEDS: MIRTAZAPINE 15 MG TAB PO SCH (20:26)
[2019-11-15] MEDS: MELATONIN 5 MG TABLET PO SCH (20:26)
[2019-11-15] MEDS: ACETAMINOPHEN TAB 325 MG TAB PO PRN (20:26)
[2019-11-15] MEDS: QUEtiapine 50 MG TAB PO SCH (20:26)
[2019-11-16] MEDS: NICOTINE 14MG/24HR PATCH TRANSDERM SCH (09:11)
[2019-11-16] MEDS: FAMOTIDINE 20 MG TAB PO SCH ×2 (09:11→20:35)
[2019-11-16] MEDS: ACETAMINOPHEN TAB 325 MG TAB PO PRN ×2 (09:11→14:02)
--- NOTE | 2019-11-16 14:14 | P.PN ---
Progress Note - Text Progress Note Date: 11/16/19 However history: Patient relays that he slept about an hour last night. He describes multiple interruptions on the unit including 15 minute checks. He does describe a little bit of lightheadedness feeling in terms of medication side effect which goes away. Mental status exam: He is alert and cooperative with the interview. He denies any current thoughts of suicide and makes reference to wanting to be able to go home. There is no evidence of active psychosis and he does not display any a gitation. Plan: Patient will be maintained on current psychotropic medication regimen. We will continue to monitor for any medication side effects monitor his ongoing response to treatment. Continue to monitor his sleep.
[2019-11-16] MEDS: MELATONIN 5 MG TABLET PO SCH (20:35)
[2019-11-16] MEDS: MIRTAZAPINE 15 MG TAB PO SCH (20:36)
[2019-11-16] MEDS: QUEtiapine 50 MG TAB PO SCH (20:36)
[2019-11-17] MEDS: NICOTINE 14MG/24HR PATCH TRANSDERM SCH (09:06)
[2019-11-17] MEDS: NAPROXEN 250 MG TAB PO PRN ×2 (09:06→20:28)
[2019-11-17] MEDS: FAMOTIDINE 20 MG TAB PO SCH ×2 (09:06→20:26)
--- NOTE | 2019-11-17 15:16 | P.PN ---
Subjective Progress Note Date: 11/17/19 Principal diagnosis: Suicide attempt, cannabis withdrawal, cannabis use disorder severe, bipolar disorder most recent episode depressed, rule out major depressive disorder severe without psychotic features, rule out traumatic brain injury, laceration to his scalp, chronic back pain I reviewed the medical record, interviewed the patient and discuss his treatment and treatment plan during team meeting. His primary complaint remains insomnia. He complained that he is unable to sleep and awakes frequently during the night. However, he denied having thoughts of or suicide. He identified no symptoms of marijuana withdrawal including diminished appetite, irritability, insomnia, loss of focus, and increased feelings of depression. We discussed his mental state prior to the suicide attempt. He talked about the difficulty "focusing", insomnia and fatigue as the primary reason that he attempted suicide. He has been attending therapeutic groups and activities intermittently. There is reports that he is sleeping approximately 6 hours per night. He denied side effects to either the Seroquel or mirtazapine. We discussed treatment options and agreed to increase both medications. Objective - Vital Signs Vital signs: Vital Signs Temp 97.9 F 11/17/19 06:43 Pulse 81 11/17/19 06:43 Resp 18 11/17/19 06:43 BP 108/71 11/17/19 06:43 Pulse Ox 96 11/17/19 06:43 Intake & Output 11/16/19 11/17/19 11/17/19 18:59 06:59 18:59 Weight 51.9 kg - Exam He presented as a thin disheveled appearing 54-year-old male who had a healing laceration to his forehead. He made eye contact and attended to interview. He had psychomotor retardation but no abnormal movements. His speech was spontaneous with decreased rate and volume. His affect was depressed and not reactive. He denied current suicidal ideation or wishes. He continues to feel hopeless and helpless. He ruminated about his insomnia. His thinking was concrete. Associations were coherent. He denied hallucinations did not appear to be responding to internal stimuli. - Labs CBC & Chem 7: 11/13/19 07:05 Assessment and Plan Assessment: Overall, he appears less depressed and distressed admission. Continues to report difficulty with initial and middle insomnia. Plan: Continue inpatient treatment. Safety precautions. Increase mirtazapine to 30 mg at bedtime and Seroquel to 100 mg at bedtime. Continue Seroquel 25 mg by mouth 3 times a day when necessary for anxiety. Consider trial of an alternate mood stabilizer such as lithium, Lamictal or Depakote. Continue Ativan and Geodon for agitation or aggression. Encouraged continued participation in erapeutic groups and activities. Evaluate clinical status response to treatment on a daily basis.
[2019-11-17] MEDS: ACETAMINOPHEN TAB 325 MG TAB PO PRN ×2 (15:41→20:28)
[2019-11-17] MEDS: MELATONIN 5 MG TABLET PO SCH (20:26)
[2019-11-17] MEDS ORDERED: MIRTAZAPINE 15 MG TAB PO SCH (21:00)
[2019-11-17] MEDS ORDERED: QUEtiapine 100 MG TAB PO SCH (21:00)
[2019-11-18] MEDS: NICOTINE 14MG/24HR PATCH TRANSDERM SCH (08:42)
[2019-11-18] MEDS: FAMOTIDINE 20 MG TAB PO SCH ×2 (08:42→20:18)
[2019-11-18] MEDS: NAPROXEN 250 MG TAB PO PRN ×2 (08:43→15:35)
[2019-11-18 09:33] VITALS: BMI 18.4
[2019-11-18] MEDS: lamoTRIgine 25 MG TAB PO SCH (10:31)
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
[2019-11-18] MEDS: LORazepam 1 MG TAB PO PRN (16:12)
[2019-11-18] MEDS: ACETAMINOPHEN TAB 325 MG TAB PO PRN (16:12)
[2019-11-18] MEDS: QUEtiapine 200 MG TAB PO SCH (20:18)
[2019-11-18] MEDS: MELATONIN 5 MG TABLET PO SCH (20:18)
[2019-11-19] MEDS: ACETAMINOPHEN TAB 325 MG TAB PO PRN (08:23)
[2019-11-19] MEDS: FAMOTIDINE 20 MG TAB PO SCH ×2 (08:23→20:52)
[2019-11-19] MEDS: lamoTRIgine 25 MG TAB PO SCH (08:23)
--- NOTE | 2019-11-19 11:21 | P.PN ---
Subjective Progress Note Date: 11/19/19 Principal diagnosis: Suicide attempt, cannabis withdrawal, cannabis use disorder severe, bipolar disorder most recent episode depressed, rule out major depressive disorder severe without psychotic features, rule out traumatic brain injury, laceration to his scalp, chronic back pain I reviewed the medical record, interviewed the patient and discuss his treatment and treatment plan during team meeting. He reported that he slept better last night that he had in the last several weeks. He expressed hopefulness and wanted to discuss discharge and discharge plan. He became disheartened when we talked about the discharge plan emphasizing that he is "not suicidal".. He mentioned he plans to live with her sister and I suggested that he speak with his sister (during our telephone conversation his sister stated that he may stay with her temporarily but he would have to move to his own apartment). He complained of some lightheadedness and dizziness with the first dose of Lamictal but denied side effects to the increased dose of Seroquel. According to nursing record he slept 7 hours last night. He has not been attending therapeutic groups and activities. Objective - Vital Signs Vital signs: Vital Signs Temp 97.3 F L 11/19/19 06:45 Pulse 69 11/19/19 06:45 Resp 16 11/19/19 06:45 BP 122/69 11/19/19 06:45 Pulse Ox 99 11/18/19 06:20 Intake & Output 11/18/19 11/19/19 11/19/19 18:59 06:59 18:59 Weight 51.9 kg - Exam He presented as a thin disheveled appearing 54-year-old male who had a healing laceration to his forehead. He made eye contact and attended to interview. He had psychomotor retardation but no abnormal movements. His speech was spontaneous with decreased rate and volume. His affect was depressed but reactive. He denied current suicidal ideation or wishes. He continues to feel hopeless and helpless. His thinking was concrete. Associations were coherent. He denied hallucinations did not appear to be responding to internal stimuli. - Labs CBC & Chem 7: 11/13/19 07:05 Assessment and Plan Assessment: Overall, he appears less depressed and distressed admission. Sleep is improved with the increase in Seroquel, discontinuation of mirtazapine and the initial dose of Lamictal. Plan: Continue inpatient treatment. Safety precautions. Continue Seroquel to 200 mg at bedtime and began Lamictal 25 mg daily and titrated according to clinical response and tolerance. Continue Seroquel 25 mg by mouth 3 times a day when necessary for anxiety. Continue Ativan and Geodon for agitation or aggression. Encouraged continued participation in therapeutic groups and activities. Evaluate clinical status response to treatment on a daily basis.
[2019-11-19] MEDS: LORazepam 1 MG TAB PO PRN (15:10)
[2019-11-19] MEDS: NAPROXEN 250 MG TAB PO PRN (15:10)
[2019-11-19] MEDS: MELATONIN 5 MG TABLET PO SCH (20:51)
[2019-11-19] MEDS: QUEtiapine 200 MG TAB PO SCH (20:52)
[2019-11-20] MEDS: ACETAMINOPHEN TAB 325 MG TAB PO PRN (08:46)
[2019-11-20] MEDS: lamoTRIgine 25 MG TAB PO SCH (08:46)
[2019-11-20] MEDS: FAMOTIDINE 20 MG TAB PO SCH ×2 (08:46→20:08)
--- NOTE | 2019-11-20 13:28 | P.PN ---
Subjective Progress Note Date: 11/20/19 Principal diagnosis: Suicide attempt, cannabis withdrawal, cannabis use disorder severe, bipolar disorder most recent episode depressed, rule out major depressive disorder severe without psychotic features, rule out traumatic brain injury, laceration to his scalp, chronic back pain I reviewed the medical record, interviewed the patient and discuss his treatment and treatment plan during team meeting. He reports that he is feeling better and he slept well again last night. He spoke with his sister yesterday and she told him that he could not live with her permanently but the family would help him settling into her apartment. He talked about the suicide attempt and he maintained that he would "never ever do that again." He has a superficial understanding of the reason for the attempted or the effect of his actions on other people including the logging truck driver of the semitruck. He slept 6 hours last night. He continues to avoid attending therapeutic groups and activities. He is compliant with prescribed medications. He denied side effects to Lamictal and Seroquel. Objective - Vital Signs Vital signs: Vital Signs Temp 97.8 F 11/20/19 06:52 Pulse 77 11/20/19 06:52 Resp 16 11/20/19 06:52 BP 123/77 11/20/19 06:52 Pulse Ox 99 11/18/19 06:20 - Exam He was casually groomed and wearing hospital gown. He is thin and pale. He had a flat affect. The laceration on his forehead the ceiling and there is no evidence of inflammation. He showed psychomotor slowing but no abnormal movements. His speech was spontaneous with decreased rate and rhythm. His affect was blunted but stable and appropriate. He denied current suicidal ideation or wishes. He ruminated about his distress that led him to the suicide attempt. He did not express psychotic symptoms. He did not appear to be responding to internal stimuli. - Labs CBC & Chem 7: 11/13/19 07:05 Assessment and Plan Assessment: Overall, he appears less depressed and distressed admission. Sleep has improved with the increase in Seroquel, discontinuation of mirtazapine and the initial dose of Lamictal. Plan: Continue inpatient treatment. Safety precautions. Continue Seroquel to 200 mg at bedtime and began Lamictal 25 mg daily and titrated according to clinical response and tolerance. Continue Seroquel 25 mg by mouth 3 times a day when necessary for anxiety. Continue Ativan and Geodon for agitation or aggression. Encouraged continued participation in therapeutic groups and activities. Evaluate clinical status response to treatment on a daily basis.
[2019-11-20] MEDS: MELATONIN 5 MG TABLET PO SCH (20:08)
[2019-11-20] MEDS: NAPROXEN 250 MG TAB PO PRN (20:08)
[2019-11-20] MEDS: QUEtiapine 200 MG TAB PO SCH (20:08)
[2019-11-21] MEDS: FAMOTIDINE 20 MG TAB PO SCH ×2 (08:34→20:37)
[2019-11-21] MEDS: NAPROXEN 250 MG TAB PO PRN ×2 (08:35→16:17)
[2019-11-21] MEDS: lamoTRIgine 25 MG TAB PO SCH (08:35)
[2019-11-21] MEDS: ACETAMINOPHEN TAB 325 MG TAB PO PRN ×2 (14:35→20:39)
--- NOTE | 2019-11-21 15:06 | P.PN ---
Subjective Progress Note Date: 11/21/19 Principal diagnosis: Suicide attempt, cannabis withdrawal, cannabis use disorder severe, bipolar disorder most recent episode depressed, rule out major depressive disorder severe without psychotic features, rule out traumatic brain injury, laceration to his scalp, chronic back pain I reviewed the medical record, interviewed the patient and discuss his treatment and treatment plan during team meeting. He slept well again last night didn't denied other problems or concerns. Denied feeling depressed or having thoughts of or suicide. He is now attending therapeutic groups and activities. He slept 7 hours last night. He continues to deny side effects to Seroquel and Lamictal. Objective - Vital Signs Vital signs: Vital Signs Temp 98.5 F 11/21/19 12:00 Pulse 77 11/21/19 06:30 Resp 17 11/21/19 06:30 BP 110/54 11/21/19 06:30 Pulse Ox 98 11/21/19 06:30 - Exam He was casually groomed and wearing hospital gown. He is thin and pale. He had a flat affect. The laceration on his forehead is feeling and there was no evidence of inflammation. He showed psychomotor slowing but no abnormal movements. His speech was spontaneous with normal rate and rhythm. His affect was blunted but stable and appropriate. He denied current suicidal ideation or wishes. He ruminated about his distress that led him to the suicide attempt. He did not express psychotic symptoms. He did not appear to be responding to internal stimuli. - Labs CBC & Chem 7: 11/13/19 07:05 Assessment and Plan Assessment: Overall, he appears less depressed and distressed admission. Sleep has improved with the increase in Seroquel, discontinuation of mirtazapine and the initial dose of Lamictal. Plan: Continue inpatient treatment. Safety precautions. Continue Seroquel to 200 mg at bedtime and began Lamictal 25 mg daily and titrated according to clinical response and tolerance. Continue Seroquel 25 mg by mouth 3 times a day when necessary for anxiety. Continue Ativan and Geodon for agitation or aggression. Encouraged continued participation in therapeutic groups and activities. Evaluate clinical status response to treatment on a daily basis.
[2019-11-21] MEDS: QUEtiapine 200 MG TAB PO SCH (20:37)
[2019-11-21] MEDS: MELATONIN 5 MG TABLET PO SCH (20:38)
[2019-11-22] MEDS: lamoTRIgine 25 MG TAB PO SCH (08:25)
[2019-11-22] MEDS: FAMOTIDINE 20 MG TAB PO SCH ×2 (08:25→20:12)
[2019-11-22] MEDS: ACETAMINOPHEN TAB 325 MG TAB PO PRN (08:25)
--- NOTE | 2019-11-22 09:44 | P.PN ---
Progress Note - Text Progress Note Date: 11/22/19 Interval history: Patient was seen wandering the hallways and was directable and agreeable to s peak with conventional mortgage underwriter. Patient appeared to have fair hygiene and grooming and was calm and cooperative during the interview. He offered no overnight complaints and states that he slept well. He states that he's been going to groups and claims that his mood and anxiety but improving. He states that he is anxious to be going home hopefully at the beginning of this coming week. At this time patient denies any suicidal or homicidal ideations intent or plan. Denies any Auditory or visual hallucinations. Patient denies any side effects from the medications and has been compliant with meds. Mental status exam: General Appearance: Patient appears to be stated age is alert, directable, and cooperative. Fair hygiene and grooming. Behavior: No agitated behavior. Patient is calm and directable Speech: Patient's speech is fluent and nonpressured. Mood/Affect: Mood is improving mildly, affect is congruent and constricted. Suicidality/Homicidality: Patient denies having any suicidal or homicidal ideation intent or plan. Perceptions: Patient denies any auditory or visual hallucinations. Though content/process: There is no evidence of any delusional thought content and thought process is linear and goal-directed. Memory and concentration: AOX3, grossly intact for the purposes of this session Judgment and insight: improving mildly Assessment/Plan: Continue with current diagnosis. Patient continues to meet criteria for inpatient psychiatric admission for symptom stabilization and safety.Patient will be maintained on current psychotropic medication regimen. Monitor for medication compliance and for any psychotropic medication side effects. Will continue to monitor ongoing response to treatment. Encouraged participation in milieu.
[2019-11-22] MEDS: NAPROXEN 250 MG TAB PO PRN (12:56)
[2019-11-22] MEDS: QUEtiapine 200 MG TAB PO SCH (20:12)
[2019-11-22] MEDS: MELATONIN 5 MG TABLET PO SCH (20:12)
[2019-11-23 07:13] VITALS: RESP 16
[2019-11-23] MEDS: FAMOTIDINE 20 MG TAB PO SCH ×2 (08:27→20:13)
[2019-11-23] MEDS: NAPROXEN 250 MG TAB PO PRN ×2 (08:27→17:20)
[2019-11-23] MEDS: lamoTRIgine 25 MG TAB PO SCH (08:27)
--- NOTE | 2019-11-23 10:08 | P.PN ---
Progress Note - Text Progress Note Date: 11/23/19 Interval history: Patient was seen laying in his bed this morning and was directable and agreeable to speak with com writer. Patient appeared to be somewhat frustrated and stated that "my roommate was snoring all night and only slept one or 2 hours". Patient states that she was upset with the room change and was focused on discharge and also trying to get sleep. He states that he's been going to groups and claims that his mood and anxiety are "fine". Patient was future oriented and also talk ed about discharge possibly early this coming week. At this time patient denies any suicidal or homicidal ideations intent or plan. Denies any Auditory or visual hallucinations. Patient denies any side effects from the medications and has been compliant with meds. Mental status exam: General Appearance: Patient appears to be stated age is alert, directable, and cooperative. Fair hygiene and grooming. Behavior: No agitated behavior. Patient is calm and directable, frustrated at times. Speech: Patient's speech is fluent and nonpressured. Mood/Affect: Mood is improving mildly, affect is congruent and constricted. Suicidality/Homicidality: Patient denies having any suicidal or homicidal ideation intent or plan. Perceptions: Patient denies any auditory or visual hallucinations. Though content/process: There is no evidence of any delusional thought content and thought process is linear and goal-directed. Memory and concentration: AOX3, grossly intact for the purposes of this session Judgment and insight: improving mildly Assessment/Plan: Continue with current diagnosis. Patient continues to meet criteria for inpatient psychiatric admission for symptom stabilization and safe ty.Patient will be maintained on current psychotropic medication regimen. Monitor for medication compliance and for any psychotropic medication side effects. Will continue to monitor ongoing response to treatment. Encouraged participation in milieu.
[2019-11-23] MEDS: ACETAMINOPHEN TAB 325 MG TAB PO PRN (12:10)
[2019-11-23] MEDS: MELATONIN 5 MG TABLET PO SCH (20:14)
[2019-11-23] MEDS ORDERED: QUEtiapine 100 MG TAB PO SCH (21:00)
[2019-11-24 06:49] VITALS: BP 124/80; PULSE 82
[2019-11-24] MEDS: lamoTRIgine 25 MG TAB PO SCH (07:53)
[2019-11-24] MEDS: FAMOTIDINE 20 MG TAB PO SCH (07:53)
[2019-11-24] MEDS: ACETAMINOPHEN TAB 325 MG TAB PO PRN (07:53)
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
[2019-11-24 13:25] VITALS: TEMP 98.9
== END 2019-11-24 16:41 | disposition home or self-care (01) | DRG 885 ==
LOC: 3MHU 18:15
PROVIDERS: ADMIT Psychiatry & Neurology Psychiatry; ATTEND Psychiatry & Neurology Psychiatry
DX: F31.30 Bipolar disorder, current episode depressed, mild or moderate severity, unspecified (principal); R45.851 Suicidal ideations; F12.23 Cannabis dependence with withdrawal; F17.210 Nicotine dependence, cigarettes, uncomplicated; F41.9 Anxiety disorder, unspecified; G47.00 Insomnia, unspecified; G89.29 Other chronic pain; S01.81XA Laceration without foreign body of other part of head, initial encounter; M54.5 Low back pain; Z56.0 Unemployment, unspecified; Z81.8 Family history of other mental and behavioral disorders
CPT/HCPCS: 80053; 84443